=== PATIENT | female | born 1980 | race Caucasian/White ===

== ENCOUNTER 2018-01-07 12:50 | Emergency (ER) | payer MEDICAID ==
--- NOTE | 2018-01-07 13:10 | EDPHY ---
H & P Stated Complaint: RUQ pn x 2 years, worse today, nausea Time Seen by Provider: 01/07/18 13:01 HPI/ROS: CHIEF COMPLAINT: Right upper quadrant pain HISTORY OF PRESENT ILLNESS: 37-year-old female status post cholecystectomy presents with right upper quadrant pain. 2 year history of intermittent right upper quadrant pain. The pain recurs every 6-8 months. Pain is moderate to severe, associated with nausea. The pain radiates to the right flank. Unable to sleep because of the pain last night. No hematuria or dysuria. No prior history of kidney stones. REVIEW OF SYSTEMS: complete 10 point ROS reviewed and is negative except for the noted elements in the HPI - Personal History LMP (Females 10-55): Now Current Tetanus/Diphtheria Vaccine: No - Medical/Surgical History Hx Asthma: Yes Hx Chronic Respiratory Disease: No Hx Diabetes: No Hx Cardiac Disease: No Hx Renal Disease: No Hx Cirrhosis: No Hx Alcoholism: No Hx HIV/AIDS: No Hx Splenectomy or Spleen Trauma: No Other PMH: Cholicystectomy, anemia, asthma, - Social History Smoking Status: Heavy smoker Alcohol Use: Rarely Drug Use: None - Physical Exam Exam: General Appearance: Alert, pleasant, does not appear in pain Eyes: Pupils equal and round, no conjunctival pallor or injection ENT, Mouth: Mucous membranes moist Neck: Normal inspection Respiratory: Lungs are clear to auscultation Cardiovascular: Regular rate and rhythm Gastrointestinal: Abdomen is soft, right upper quadrant tenderness Neurological: A&O, nonfocal, normal gait Skin: Warm and dry, no rash Extremities: Normal inspection Psychiatric: Mood and affect normal Constitutional: Initial Vital Signs Temperature (C) 36.7 C 01/07/18 12:56 Heart Rate 75 01/07/18 12:56 Respiratory Rate 16 01/07/18 12:56 Blood Pressure 126/91 H 01/07/18 12:56 O2 Sat (%) 95 01/07/18 12:56 O2 Delivery Mode Room Air Allergies/Adverse Reactions: No Known Allergies Allergy (Unverified 01/07/18 12:55) Home Medications: Medication Instructions Recorded NK [No Known Home Meds] 01/07/18 Medical Decision Making ED Course/Re-evaluation: This pt presents with intermittent RUQ/flank pain. CT abd/pelvis ordered to rule out ureteral calculus. Urinalysis reveals 5-10 white blood cells, urine culture sent. She is asymptomatic, so will not treat with antibiotics, pending urine culture. CT scan negative, discussed with patient. Will discharge home. Abdominal exam remains benign. Unclear etiology of symptoms. Encouraged to follow up with PCP. Differential Diagnosis: Differential diagnosis includes though it is not limited to appendicitis, cholecystitis, diverticulitis, pyelonephritis, bowel perforation, small bowel obstruction. - Data Points Laboratory Results: Laboratory Results 01/07/18 13:10 01/07/18 13:10 01/07/18 01/07/18 01/07/18 13:15 13:10 13:10 WBC RBC Hgb Hct MCV MCH MCHC RDW Plt Count MPV Neut % (Auto) Lymph % (Auto) [place] % (Auto) Eos % (Auto) Baso % (Auto) Nucleat RBC Rel Count Absolute Neuts (auto) Absolute Lymphs (auto) Absolute Monos (auto) Absolute Eos (auto) Absolute Basos (auto) Absolute Nucleated RBC Immature Gran % Immature Gran # Sodium 138 mEq/L mEq/L (135-145) Potassium 4.4 mEq/L mEq/L (3.3-5.0) Chloride 105 mEq/L mEq/L (97-110) Carbon Dioxide 23 mEq/l mEq/l (22-31) Anion Gap 10 mEq/L mEq/L (8-16) BUN 12 mg/dL mg/dL (7-23) Creatinine 0.9 mg/dL mg/dL (0.6-1.0) Estimated GFR > 60 Glucose 105 mg/dL H mg/dL (70-100) Calcium 9.3 mg/dL mg/dL (8.5-10.4) Total Bilirubin 0.5 mg/dL mg/dL (0.1-1.4) Conjugated Bilirubin 0.1 mg/dL mg/dL (0.0-0.5) Unconjugated Bilirubin 0.4 mg/dL mg/dL (0.0-1.1) AST 21 IU/L IU/L (14-46) ALT 31 IU/L IU/L (9-52) Alkaline Phosphatase 71 IU/L IU/L (38-126) Total Protein 7.3 g/dL g/dL (6.3-8.2) Albumin 4.4 g/dL g/dL (3.5-5.0) Lipase 98 IU/L IU/L (23-300) Beta HCG, Qual NEGATIVE Urine Color YELLOW Urine Appearance HAZY Urine pH 5.0 (5.0-7.5) Ur Specific [place] 1.012 (1.002-1.030) Urine Protein NEGATIVE (NEGATIVE) Urine Ketones NEGATIVE (NEGATIVE) Urine Blood 3+ H (NEGATIVE) Urine Nitrate NEGATIVE (NEGATIVE) Urine Bilirubin NEGATIVE (NEGATIVE) Urine Urobilinogen NEGATIVE EU EU (0.2-1.0) Ur Leukocyte Esterase TRACE H (NEGATIVE) Urine RBC 1-3 /hpf /hpf (0-3) Urine WBC 5-10 /hpf H /hpf (0-3) Ur Epithelial Cells 1+ /lpf /lpf (NONE-1+) Urine Mucus TRACE /lpf /lpf (NONE-1+) Urine Glucose NEGATIVE (NEGATIVE) 01/07/18 13:10 WBC 10.52 10^3/uL H 10^3/uL (3.80-9.50) RBC 4.91 10^6/uL 10^6/uL (4.18-5.33) Hgb 14.9 g/dL g/dL (12.6-16.3) Hct 43.8 % % (38.0-47.0) MCV 89.2 fL fL (81.5-99.8) MCH 30.3 pg pg (27.9-34.1) MCHC 34.0 g/dL g/dL (32.4-36.7) RDW 12.4 % % (11.5-15.2) Plt Count 247 10^3/uL 10^3/uL (150-400) MPV 10.4 fL fL (8.7-11.7) Neut % (Auto) 70.6 % % (39.3-74.2) Lymph % (Auto) 21.3 % % (15.0-45.0) [place] % (Auto) 6.2 % % (4.5-13.0) Eos % (Auto) 0.9 % % (0.6-7.6) Baso % (Auto) 0.4 % % (0.3-1.7) Nucleat RBC Rel Count 0.0 % % (0.0-0.2) Absolute Neuts (auto) 7.44 10^3/uL H 10^3/uL (1.70-6.50) Absolute Lymphs (auto) 2.24 10^3/uL 10^3/uL (1.00-3.00) Absolute Monos (auto) 0.65 10^3/uL 10^3/uL (0.30-0.80) Absolute Eos (auto) 0.09 10^3/uL 10^3/uL (0.03-0.40) Absolute Basos (auto) 0.04 10^3/uL 10^3/uL (0.02-0.10) Absolute Nucleated RBC 0.00 10^3/uL 10^3/uL (0-0.01) Immature Gran % 0.6 % % (0.0-1.1) Immature Gran # 0.06 10^3/uL 10^3/uL (0.00-0.10) Sodium Potassium Chloride Carbon Dioxide Anion Gap BUN Creatinine Estimated GFR Glucose Calcium Total Bilirubin Conjugated Bilirubin Unconjugated Bilirubin AST ALT Alkaline Phosphatase Total Protein Albumin Lipase Beta HCG, Qual Urine Color Urine Appearance Urine pH Ur Specific [place] Urine Protein Urine Ketones Urine Blood Urine Nitrate Urine Bilirubin Urine Urobilinogen Ur Leukocyte Esterase Urine RBC Urine WBC Ur Epithelial Cells Urine Mucus Urine Glucose Departure - Departure Disposition: Home, Routine, Self-Care Clinical Impression: Abdominal pain Qualifiers: Abdominal location: right upper quadrant Qualified Code(s): R10.11 - Right upper quadrant pain Condition: Good Instructions: Abdominal Pain (ED) Additional Instructions: Sometimes we are unable to diagnose an obvious cause of abdominal pain in the Emergency Department. Based upon our evaluation today, we see no obvious explanation for your pain. Because more serious conditions can be difficult to diagnose early in the course of their presentation, we ask that you return to the Emergency Department in 12-24 hours for a recheck if you are still having pain. This is necessary to exclude the development of a more serious condition such as appendicitis or other intra-abdominal emergency. In the event your pain markedly increases before that time or you develop intractable vomiting or fever return to the Emergency Department immediately. Referrals: Vitaliy Latif MD [Medical Doctor] - As per Instructions Scotty Cee DO [Doctor of Osteopathy] - As per Instructions (Call to make an appointment.)
[2018-01-07 13:32] LABS: PLATELET COUNT 247 10^3/uL (150-400)
[2018-01-07 14:46] VITALS: BP 119/87
== END 2018-01-07 14:45 | disposition home or self-care (01) ==
DX: R10.11 Right upper quadrant pain (principal)

== ENCOUNTER 2018-04-07 02:13 | Emergency (ER) | payer MEDICAID ==
[2018-04-07 02:23] VITALS: BP 151/111
--- NOTE | 2018-04-07 02:24 | EDPHY ---
H & P Stated Complaint: right flank pain Time Seen by Provider: 04/07/18 02:16 HPI/ROS: HPI The patient presents with right flank pain which has been present for the last 3 months intermittently which is moderate in severity and does not radiate. She has no nausea, vomiting, hematuria, dysuria. She has no recent trauma. She does say that she is homeless and carrying around a very heavy backpack and wonders if this is the cause of her pain. As she is brought in by ambulance. She was found to have normal vital signs. She was seen in the emergency department in December for this same sort of pain. She underwent to CT scan which showed no kidney stones present within her kidneys or within the urinary tract. REVIEW OF SYSTEMS 10 systems were reviewed and negative with the exception of the elements mentioned in the history of present illness. PMHx: Asthma, migraines Soc Hx: [place] PHYSICAL General Appearance: Alert, no distress Eyes: Pupils equal and round no pallor or injection ENT, Mouth: Mucous membranes moist Respiratory: There are no retractions, lungs are clear to auscultation Cardiovascular: Regular rate and rhythm Gastrointestinal: Abdomen is soft and non-tender, no masses, bowel sounds normal Neurological: A&O, moves all extremities Skin: Warm and dry, no rashes Musculoskeletal: Neck is supple non tender Extremities: symmetrical, full range of motion Psychiatric: Patient is oriented X 3, there is no agitation Source: Patient, EMS Exam Limitations: No limitations - Personal History LMP (Females 10-55): 8-14 Days Ago Current Tetanus/Diphtheria Vaccine: No Current Tetanus Diphtheria and Acellular Pertussis (TDAP): No - Medical/Surgical History Hx Asthma: Yes Hx Chronic Respiratory Disease: No Hx Diabetes: No Hx Cardiac Disease: No Hx Renal Disease: No Hx Cirrhosis: No Hx Alcoholism: No Hx HIV/AIDS: No Hx Splenectomy or Spleen Trauma: No Other PMH: Cholicystectomy, anemia, asthma, - Social History Smoking Status: Heavy smoker Constitutional: Initial Vital Signs Temperature (C) 36.9 C 04/07/18 02:16 Heart Rate 89 04/07/18 02:16 Respiratory Rate 16 04/07/18 02:16 Blood Pressure 151/111 H 04/07/18 02:16 O2 Sat (%) 95 04/07/18 02:16 O2 Delivery Mode Room Air Allergies/Adverse Reactions: No Known Allergies Allergy (Verified 04/07/18 02:17) Home Medications: Medication Instructions Recorded NK [No Known Home Meds] 04/07/18 Medical Decision Making Differential Diagnosis: This is a 37-year-old female with homelessness, history of cholecystectomy, history of prior flank pain who [place]-sided flank pain which has been present for months. Recent normal ED workup. UA here normal with no sign of pyelonephritis or hematuria to signify ureterolithiasis. Urine test is negative making ectopic unlikely. Patient was medicated with ibuprofen and Tylenol with some improvement of symptoms. I suspect she has muscle strain causing her pain today. This could be exacerbated by carrying heavy backpack. I have discussed treatment with ibuprofen, Tylenol, ice and heat. [facility] for her pain. - Data Points Laboratory Results: 04/07/18 04/07/18 02:20 02:20 Urine Color YELLOW Urine Appearance MODERATELY TURBID Urine pH 5.0 (5.0-7.5) Ur Specific [place] 1.025 (1.002-1.030) Urine Protein NEGATIVE (NEGATIVE) Urine Ketones NEGATIVE (NEGATIVE) Urine Blood NEGATIVE (NEGATIVE) Urine Nitrate NEGATIVE (NEGATIVE) Urine Bilirubin NEGATIVE (NEGATIVE) Urine Urobilinogen NEGATIVE EU EU (0.2-1.0) Ur Leukocyte Esterase TRACE H (NEGATIVE) Urine RBC 1-3 /hpf /hpf (0-3) Urine WBC 3-5 /hpf H /hpf (0-3) Ur Epithelial Cells 3+ /lpf H /lpf (NONE-1+) Urine Mucus TRACE /lpf /lpf (NONE-1+) Urine Glucose NEGATIVE (NEGATIVE) Urine Test NEGATIVE Medications Given: Discontinued Medications Acetaminophen (Tylenol) 1,000 mg PO EDNOW ONE Stop: 04/07/18 02:25 Last Admin: 04/07/18 02:28 Dose: 1,000 mg Ibuprofen (Motrin) 400 mg PO EDNOW ONE Stop: 04/07/18 02:25 Last Admin: 04/07/18 02:28 Dose: 400 mg Departure - Departure Disposition: Home, Routine, Self-Care Clinical Impression: Right flank pain, Elevated blood pressure reading Condition: Good Instructions: Flank Pain (ED), Muscle Strain (ED), Lower Back Exercises (ED), Hypertension (ED) Additional Instructions: I recommend you take ibuprofen 400 mg with acetaminophen 1000 mg every 6 hr as needed for your back pain. I also recommend that you have your blood pressure read checked at a pharmacy or at a clinic. Your blood pressure was high today. You can follow[facility]up with the [facility] for further care of your pain. Referrals: SHANE Garcia,. [Clinic] - As per Instructions
[2018-04-07] MEDS: IBUPROFEN 200 MG TAB PO ONE (02:28)
[2018-04-07] MEDS: ACETAMINOPHEN 500 MG TAB PO ONE (02:28)
== END 2018-04-07 03:14 | disposition home or self-care (01) ==
LOC: EDUNIT#
DX: R10.9 Unspecified abdominal pain (principal); R03.0 Elevated blood-pressure reading, without diagnosis of hypertension; J45.909 Unspecified asthma, uncomplicated; G43.909 Migraine, unspecified, not intractable, without status migrainosus; F17.200 Nicotine dependence, unspecified, uncomplicated; Z59.0 Homelessness